=== PATIENT | female | born 1940 | race Caucasian/White ===

== ENCOUNTER 2024-05-08 20:54 | Inpatient (IN) | payer MEDICARE, MEDICAID ==
[~2024-05-08] VITALS: Ht 152.4 cm; Wt 55.3 kg
[2024-05-08 22:01] LABS: BASOPHILS % 0.4 % (0.0-2.0); EOSINOPHILS % 0.3 % (0.0-5.0); HEMATOCRIT. 38.1 % (36.0-48.0); HEMOGLOBIN. 12.3 g/dL (12.0-16.0); LYMPHOCYTES % 16.4 % (20.0-50.0); MEAN CORPUSCULAR HEMOGLOBIN 27.7 pg (28.0-32.0); MEAN CORPUSCULAR HGB CONC 32.2 g/dL (31.0-37.0); MEAN CORPUSCULAR VOLUME 85.9 fL (81.0-99.0); MEAN PLATELET VOLUME 8.4 fl (7.4-10.4); MONOCYTES % 7.4 % (2.0-8.0); NEUTROPHILS % 75.5 % (40.0-76.0); PLATELET 281 x1000/uL (130-400); RED BLOOD CELL COUNT 4.43 mill/uL (4.2-5.4); RED CELL DISTRIBUTION WIDTH 15.4 % (11.6-14.6); WHITE BLOOD COUNT 12.2 x1000/uL (4.5-11.0)
[2024-05-08 22:07] LABS: CHLORIDE 98 mEq/L (98-107); POTASSIUM 4.6 mEq/L (3.5-5.1); SODIUM 135 mEq/L (136-145)
[2024-05-08 22:08] LABS: CALCIUM 9.7 mg/dL (8.7-10.4); CARBON DIOXIDE 32 mEq/L (21-32)
[2024-05-08 22:10] LABS: CLARITY URINE TURBID (CLEAR); COLOR URINE YELLOW (YELLOW); GLUCOSE URINE NEGATIVE (NEGATIVE); KETONES URINE TRACE (NEGATIVE); LEUKOCYTE ESTERASE URINE 3+ (NEGATIVE); NITRITE URINE NEGATIVE (NEGATIVE); OCCULT BLOOD URINE 3+ (NEGATIVE); PH URINE 5.5 (4.5-8.0); PROTEIN URINE 2+ (NEGATIVE); SPECIFIC GRAVITY URINE 1.019 (1.005-1.030); UROBILINOGEN URINE 0.2 E.U./dL (0.2-1.0)
[2024-05-08] MEDS: SODIUM CHLORIDE 0.9% 1,000 ML IV ONE ×2 (22:10→23:47)
[2024-05-08 22:13] LABS: CREATININE 1.2 mg/dL (0.6-1.0); GLUCOSE 172 mg/dL (70-105); UREA NITROGEN BLOOD 31 mg/dL (9-23)
[2024-05-08 22:15] LABS: ALANINE AMINOTRANSFERASE 8 IU/L (10-49); ASPARTATE AMINOTRANSFERASE 15 IU/L (<34); BILIRUBIN DIRECT 0.1 mg/dL (<=3.0); BILIRUBIN TOTAL 0.5 mg/dL (0.1-1.0); LACTIC ACID 2.2 mmol/L (0.4-2.0); TROPONIN I HIGH SENSITIVITY 14 ng/L (3.0-34)
[2024-05-08 22:20] LABS: THYROID STIMULATING HORMONE 1.93 uIU/mL (0.55-4.78)
[2024-05-08 22:34] LABS: WBC URINE TNTC /hpf (0-2)
[2024-05-08 22:35] LABS: BACTERIA URINE 4+; RBC URINE TNTC /hpf (0-2); SQUAMOUS EPITHELIAL CELL URINE FEW /lpf (RARE/1+)
[2024-05-08] MEDS ORDERED: VANCOMYCIN 1G PREMIX 200 ML IV ONE (23:15)
[2024-05-08] MEDS: PIPERACILLIN/TAZO 3.375G/50ML 50 ML IV ONE (23:47)
[2024-05-09] VITALS (73 sets, daily range): BP systolic 88–197; BP diastolic 43–125; PULSE 64–91; RESP 13–20; TEMP 36.50292–37.28076; O2SAT 97–100
[2024-05-09] MEDS: VANCOMYCIN 1GM PMX (XELLIA) 200 ML IV NR (00:15)
[2024-05-09 00:32] LABS: BG BASE EXCESS 0.7 mmol/L (-2.0-3.0); BG CARBOXYHEMOGLOBIN 0.5 % (0.5-1.5); BG DEOXYHEMOGLOBIN 8.6 % (0.0-5.0); BG FRACTION INSPIRED OXYGEN 28; BG HCO3 ACT 27.9 mmol/L (21.0-28.0); BG METHEMOGLOBIN 0.2 % (0.5-1.5); BG OXYGEN SATURATION 91.3 % (94.0-98.0); BG OXYHEMOGLOBIN 90.7 % (94.0-98.0); BG PCO2 56.9 mmHg (32.0-45.0); BG PH 7.309 (7.350-7.450); BG PO2 65.9 mmHg (83.0-108.0); BG SAMPLE SITE RIGHT BRACHIAL; BG TOTAL HEMOGLOBIN 11.9 g/dL (12.0-16.0); BG VENT MODE NASAL CANNULA
[2024-05-09 05:15] LABS: BG BASE EXCESS 2.7 mmol/L (-2.0-3.0); BG CARBOXYHEMOGLOBIN 0.8 % (0.5-1.5); BG FRACTION INSPIRED OXYGEN 40; BG HCO3 ACT 25.3 mmol/L (21.0-28.0); BG OXYHEMOGLOBIN 98.2 % (94.0-98.0); BG PCO2 33.1 mmHg (32.0-45.0); BG PH 7.502 (7.350-7.450); BG PO2 130.3 mmHg (83.0-108.0); BG SAMPLE SITE RIGHT BRACHIAL; BG TOTAL HEMOGLOBIN 13.1 g/dL (12.0-16.0); BG VENT MODE VENT - AC
[2024-05-09] MEDS: DEXT 5%/0.45% NACL 1000ML 1,000 ML IV SCH (08:00)
[2024-05-09] MEDS: PIPERACILLIN/TAZO 3.375G/50ML 50 ML IV SCH (09:27)
[2024-05-09] MEDS: PANTOPRAZOLE SODIUM 40 MG/VIAL IV SCH (09:28)
[2024-05-09] MEDS: ENOXAPARIN 30MG/0.3ML SYR SUBCUT SCH (09:28)
[2024-05-09] MEDS: PROPOFOL 10MG/ML 100ML 100 ML IV PRN (09:31)
[2024-05-09 10:44] LABS: TROPONIN I HIGH SENSITIVITY 27 ng/L (3.0-34)
[2024-05-09 16:15] LABS: BASOPHILS % 0.7 % (0.0-2.0); EOSINOPHILS % 1.7 % (0.0-5.0); HEMATOCRIT. 32.6 % (36.0-48.0); HEMOGLOBIN. 10.8 g/dL (12.0-16.0); LYMPHOCYTES % 12.1 % (20.0-50.0); MEAN CORPUSCULAR HEMOGLOBIN 28.6 pg (28.0-32.0); MEAN CORPUSCULAR HGB CONC 33.1 g/dL (31.0-37.0); MEAN CORPUSCULAR VOLUME 86.5 fL (81.0-99.0); MEAN PLATELET VOLUME 8.7 fl (7.4-10.4); MONOCYTES % 6.2 % (2.0-8.0); NEUTROPHILS % 79.3 % (40.0-76.0); PLATELET 230 x1000/uL (130-400); RED BLOOD CELL COUNT 3.77 mill/uL (4.2-5.4); RED CELL DISTRIBUTION WIDTH 16.2 % (11.6-14.6); WHITE BLOOD COUNT 8.6 x1000/uL (4.5-11.0)
[2024-05-09 16:25] LABS: CHLORIDE 106 mEq/L (98-107); POTASSIUM 3.6 mEq/L (3.5-5.1); SODIUM 141 mEq/L (136-145)
[2024-05-09 16:26] LABS: CALCIUM 9.3 mg/dL (8.7-10.4); CARBON DIOXIDE 28 mEq/L (21-32)
[2024-05-09 16:31] LABS: CREATININE 0.8 mg/dL (0.6-1.0); GLUCOSE 210 mg/dL (70-105); UREA NITROGEN BLOOD 21 mg/dL (9-23)
[2024-05-09 16:32] LABS: TROPONIN I HIGH SENSITIVITY 21 ng/L (3.0-34)
[2024-05-09 16:33] LABS: PHOSPHORUS 2.8 mg/dL (2.5-4.9)
[2024-05-09] MEDS: VANCOMYCIN 750MG PMX (XELLIA) 150 ML IV SCH (21:20)
[2024-05-09 23:58] LABS: TROPONIN I HIGH SENSITIVITY 21 ng/L (3.0-34)
[2024-05-10] VITALS (106 sets, daily range): BP systolic 92–195; BP diastolic 38–146; PULSE 53–87; RESP 11–25; TEMP 36.6696–37.503; O2SAT 97–100
[2024-05-10] MEDS: DEXT 5%/0.2% NACL KCL 20MEQ/L 1,000 ML IV SCH (01:26)
[2024-05-10 06:22] LABS: BASOPHILS % 0.8 % (0.0-2.0); EOSINOPHILS % 3.2 % (0.0-5.0); HEMATOCRIT. 30.6 % (36.0-48.0); HEMOGLOBIN. 10.3 g/dL (12.0-16.0); LYMPHOCYTES % 19.3 % (20.0-50.0); MEAN CORPUSCULAR HEMOGLOBIN 29.4 pg (28.0-32.0); MEAN CORPUSCULAR HGB CONC 33.5 g/dL (31.0-37.0); MEAN CORPUSCULAR VOLUME 87.8 fL (81.0-99.0); MEAN PLATELET VOLUME 9.1 fl (7.4-10.4); MONOCYTES % 7.4 % (2.0-8.0); NEUTROPHILS % 69.3 % (40.0-76.0); PLATELET 219 x1000/uL (130-400); RED BLOOD CELL COUNT 3.49 mill/uL (4.2-5.4); RED CELL DISTRIBUTION WIDTH 15.9 % (11.6-14.6); WHITE BLOOD COUNT 7.4 x1000/uL (4.5-11.0)
[2024-05-10 06:36] LABS: CALCIUM 8.8 mg/dL (8.7-10.4); CARBON DIOXIDE 25 mEq/L (21-32); CHLORIDE 106 mEq/L (98-107); SODIUM 138 mEq/L (136-145)
[2024-05-10 06:41] LABS: CREATININE 0.8 mg/dL (0.6-1.0); GLUCOSE 227 mg/dL (70-105)
[2024-05-10 06:42] LABS: TRIGLYCERIDE 271 mg/dL (0-150); UREA NITROGEN BLOOD 21 mg/dL (9-23)
[2024-05-10 06:44] LABS: PHOSPHORUS 2.5 mg/dL (2.5-4.9)
[2024-05-10] MEDS: KCL 20MEQ/100ML PREMIX 100 ML IV SCH (08:39)
[2024-05-10 11:37] LABS: BG BASE EXCESS -0.2 mmol/L (-2.0-3.0); BG CARBOXYHEMOGLOBIN 0.3 % (0.5-1.5); BG DEOXYHEMOGLOBIN 0.9 % (0.0-5.0); BG FRACTION INSPIRED OXYGEN 35; BG HCO3 ACT 22.7 mmol/L (21.0-28.0); BG METHEMOGLOBIN 0.3 % (0.5-1.5); BG OXYGEN SATURATION 99.1 % (94.0-98.0); BG OXYHEMOGLOBIN 98.5 % (94.0-98.0); BG PCO2 31.1 mmHg (32.0-45.0); BG PH 7.481 (7.350-7.450); BG PO2 147.7 mmHg (83.0-108.0); BG SAMPLE SITE RIGHT RADIAL; BG TOTAL HEMOGLOBIN 10.3 g/dL (12.0-16.0); BG VENT MODE VENT - AC
[2024-05-10 17:36] LABS: BG BASE EXCESS -0.2 mmol/L (-2.0-3.0); BG CARBOXYHEMOGLOBIN 0.7 % (0.5-1.5); BG DEOXYHEMOGLOBIN 0.6 % (0.0-5.0); BG FRACTION INSPIRED OXYGEN 35; BG HCO3 ACT 23.4 mmol/L (21.0-28.0); BG METHEMOGLOBIN 0.3 % (0.5-1.5); BG OXYGEN SATURATION 99.4 % (94.0-98.0); BG OXYHEMOGLOBIN 98.4 % (94.0-98.0); BG PCO2 34.6 mmHg (32.0-45.0); BG PH 7.448 (7.350-7.450); BG PO2 164.4 mmHg (83.0-108.0); BG SAMPLE SITE RIGHT RADIAL; BG TOTAL HEMOGLOBIN 11.5 g/dL (12.0-16.0); BG VENT MODE VENT - CPAP
[2024-05-10] MEDS: HYDRALAZINE 20MG/ML VIAL IV PRN (18:14)
[2024-05-10 20:56] LABS: BG BASE EXCESS -1.3 mmol/L (-2.0-3.0); BG CARBOXYHEMOGLOBIN 0.8 % (0.5-1.5); BG DEOXYHEMOGLOBIN 0.6 % (0.0-5.0); BG FRACTION INSPIRED OXYGEN 40; BG HCO3 ACT 22.5 mmol/L (21.0-28.0); BG METHEMOGLOBIN 0.1 % (0.5-1.5); BG OXYGEN SATURATION 99.4 % (94.0-98.0); BG OXYHEMOGLOBIN 98.5 % (94.0-98.0); BG PCO2 35.4 mmHg (32.0-45.0); BG PH 7.422 (7.350-7.450); BG SAMPLE SITE RIGHT BRACHIAL; BG VENT MODE COOL AEROSOL
[2024-05-11] VITALS (18 sets, daily range): BP systolic 109–169; BP diastolic 24–112; PULSE 69–85; RESP 11–24; TEMP 36.00288–36.83628; O2SAT 94–100
[2024-05-11 08:30] LABS: BG BASE EXCESS 0.1 mmol/L (-2.0-3.0); BG CARBOXYHEMOGLOBIN 0.4 % (0.5-1.5); BG DEOXYHEMOGLOBIN 3.9 % (0.0-5.0); BG FRACTION INSPIRED OXYGEN 32; BG HCO3 ACT 23.9 mmol/L (21.0-28.0); BG METHEMOGLOBIN 0.3 % (0.5-1.5); BG OXYGEN SATURATION 96.1 % (94.0-98.0); BG OXYHEMOGLOBIN 95.4 % (94.0-98.0); BG PCO2 36.4 mmHg (32.0-45.0); BG PH 7.436 (7.350-7.450); BG PO2 74.2 mmHg (83.0-108.0); BG SAMPLE SITE RIGHT BRACHIAL; BG TOTAL HEMOGLOBIN 12.5 g/dL (12.0-16.0); BG VENT MODE NASAL CANNULA
[2024-05-11 10:33] LABS: BASOPHILS % 0.6 % (0.0-2.0); EOSINOPHILS % 4.8 % (0.0-5.0); HEMATOCRIT. 35.2 % (36.0-48.0); HEMOGLOBIN. 11.7 g/dL (12.0-16.0); LYMPHOCYTES % 15.9 % (20.0-50.0); MEAN CORPUSCULAR HEMOGLOBIN 28.7 pg (28.0-32.0); MEAN CORPUSCULAR HGB CONC 33.3 g/dL (31.0-37.0); MEAN CORPUSCULAR VOLUME 86.2 fL (81.0-99.0); MEAN PLATELET VOLUME 8.7 fl (7.4-10.4); MONOCYTES % 7.1 % (2.0-8.0); NEUTROPHILS % 71.6 % (40.0-76.0); PLATELET 273 x1000/uL (130-400); RED BLOOD CELL COUNT 4.08 mill/uL (4.2-5.4); RED CELL DISTRIBUTION WIDTH 15.6 % (11.6-14.6); WHITE BLOOD COUNT 5.8 x1000/uL (4.5-11.0)
[2024-05-11 10:37] LABS: CHLORIDE 103 mEq/L (98-107); POTASSIUM 3.6 mEq/L (3.5-5.1); SODIUM 137 mEq/L (136-145)
[2024-05-11 10:38] LABS: CALCIUM 9.7 mg/dL (8.7-10.4); CARBON DIOXIDE 26 mEq/L (21-32)
[2024-05-11 10:43] LABS: CREATININE 0.7 mg/dL (0.6-1.0); GLUCOSE 244 mg/dL (70-105); UREA NITROGEN BLOOD 8 mg/dL (9-23)
[2024-05-11] MEDS: VANCOMYCIN 1GM PMX (XELLIA) 200 ML IV SCH (13:47)
[2024-05-12] VITALS (12 sets, daily range): BP systolic 122–165; BP diastolic 44–92; PULSE 74–90; RESP 13–20; TEMP 36.16956–37.33632; O2SAT 92–99
[2024-05-12] MEDS ORDERED: SULF-13 MT (03:04)
[2024-05-12] MEDS ORDERED: CHLO473M2 MT (03:04)
[2024-05-12] MEDS ORDERED: FURO20TA4 MT (03:04)
[2024-05-12] MEDS ORDERED: ROSU40TA PO (03:04)
[2024-05-12] MEDS ORDERED: TRAM50TA3 PO (03:04)
[2024-05-12] MEDS ORDERED: GABA-1180 PO (03:04)
[2024-05-12] MEDS ORDERED: PLET5 MT (03:04)
[2024-05-12] MEDS ORDERED: METF-414 MT (03:04)
[2024-05-12] MEDS ORDERED: POLY8.5P PO (03:04)
[2024-05-12] MEDS ORDERED: ASPI-1497 MT (03:04)
[2024-05-12] MEDS: HYDROCODONE/ACETAMINOPHEN 5/325MG TABLET PO PRN (09:28)
[2024-05-12] MEDS ORDERED: LIDOCAINE HCL/EPINEPHRINE 1%-EPI 1:100,000 50ML VIAL INFIL NR (12:00)
[2024-05-12] MEDS ORDERED: LIDOCAINE HCL/EPINEPHRINE 1%-EPI 1:100,000 20ML VIAL INFIL NR (12:00)
[2024-05-13] VITALS (11 sets, daily range): BP systolic 131–152; BP diastolic 46–119; PULSE 70–83; RESP 12–23; TEMP 36.28068–37.2252; O2SAT 95–99
[2024-05-13 05:09] LABS: BASOPHILS % 0.9 % (0.0-2.0); EOSINOPHILS % 6.1 % (0.0-5.0); HEMATOCRIT. 35.1 % (36.0-48.0); HEMOGLOBIN. 11.5 g/dL (12.0-16.0); LYMPHOCYTES % 27.4 % (20.0-50.0); MEAN CORPUSCULAR HEMOGLOBIN 28.5 pg (28.0-32.0); MEAN CORPUSCULAR HGB CONC 32.9 g/dL (31.0-37.0); MEAN CORPUSCULAR VOLUME 86.7 fL (81.0-99.0); MEAN PLATELET VOLUME 8.3 fl (7.4-10.4); MONOCYTES % 9.5 % (2.0-8.0); NEUTROPHILS % 56.1 % (40.0-76.0); PLATELET 299 x1000/uL (130-400); RED BLOOD CELL COUNT 4.04 mill/uL (4.2-5.4); RED CELL DISTRIBUTION WIDTH 15.8 % (11.6-14.6); WHITE BLOOD COUNT 4.4 x1000/uL (4.5-11.0)
[2024-05-13 05:21] LABS: CHLORIDE 103 mEq/L (98-107); POTASSIUM 3.9 mEq/L (3.5-5.1); SODIUM 136 mEq/L (136-145)
[2024-05-13 05:22] LABS: CALCIUM 9.3 mg/dL (8.7-10.4); CARBON DIOXIDE 27 mEq/L (21-32)
[2024-05-13 05:27] LABS: CREATININE 0.6 mg/dL (0.6-1.0); GLUCOSE 244 mg/dL (70-105)
[2024-05-13 05:28] LABS: UREA NITROGEN BLOOD 9 mg/dL (9-23)
[2024-05-13] MEDS ORDERED: NALOXONE HCL 0.4MG/ML VIAL IV PRN (09:15)
[2024-05-13] MEDS: MAGNESIUM 2 G PREMIX 50 ML IV NR (10:55)
[2024-05-13] MEDS ORDERED: LEVO250T74 MT (16:42)
[2024-05-13] MEDS ORDERED: AMOX1TAB16 MT (16:42)
[2024-05-14] VITALS (12 sets, daily range): BP systolic 125–168; BP diastolic 50–118; PULSE 75–94; RESP 11–30; TEMP 36.3918–37.33632; O2SAT 93–99
[2024-05-15] VITALS (12 sets, daily range): BP systolic 86–177; BP diastolic 32–120; PULSE 69–84; RESP 13–19; TEMP 36.22512–37.11408; O2SAT 89–99
[2024-05-15] MEDS: POTASSIUM CHLORIDE IV SCH (11:30)
[2024-05-15] MEDS: NACL IV SCH (11:30)
[2024-05-15] MEDS: DEXT IV SCH (11:30)
[2024-05-16] VITALS (12 sets, daily range): BP systolic 96–168; BP diastolic 41–121; PULSE 72–80; RESP 12–20; TEMP 36.61404–37.05852; O2SAT 93–99
[2024-05-16 11:51] LABS: BASOPHILS % 1.2 % (0.0-2.0); EOSINOPHILS % 4.9 % (0.0-5.0); HEMATOCRIT. 33.2 % (36.0-48.0); HEMOGLOBIN. 10.8 g/dL (12.0-16.0); LYMPHOCYTES % 24.5 % (20.0-50.0); MEAN CORPUSCULAR HEMOGLOBIN 27.9 pg (28.0-32.0); MEAN CORPUSCULAR HGB CONC 32.6 g/dL (31.0-37.0); MEAN CORPUSCULAR VOLUME 85.5 fL (81.0-99.0); MEAN PLATELET VOLUME 8.4 fl (7.4-10.4); MONOCYTES % 8.5 % (2.0-8.0); NEUTROPHILS % 60.9 % (40.0-76.0); PLATELET 308 x1000/uL (130-400); RED BLOOD CELL COUNT 3.88 mill/uL (4.2-5.4); RED CELL DISTRIBUTION WIDTH 15.6 % (11.6-14.6); WHITE BLOOD COUNT 4.6 x1000/uL (4.5-11.0)
[2024-05-16 12:04] LABS: CARBON DIOXIDE 26 mEq/L (21-32); CHLORIDE 100 mEq/L (98-107); POTASSIUM 4.1 mEq/L (3.5-5.1); SODIUM 132 mEq/L (136-145)
[2024-05-16 12:05] LABS: CALCIUM 9.4 mg/dL (8.7-10.4)
[2024-05-16 12:10] LABS: CREATININE 0.7 mg/dL (0.6-1.0); GLUCOSE 313 mg/dL (70-105); UREA NITROGEN BLOOD 8 mg/dL (9-23)
[2024-05-16] MEDS ORDERED: DEXTROSE 50% WATER 50ML SYRINGE IV PRN (17:30)
[2024-05-16] MEDS: BLOOD SUGAR DIAGNOSTIC STRIP TEST SCH (17:30)
[2024-05-16] MEDS: INSULIN LISPRO 100 UNITS/ML SUBCUT SCH (19:08)
[2024-05-16] MEDS: MAGNESIUM 2 G PREMIX 50 ML IV NR (19:10)
[2024-05-17] VITALS (12 sets, daily range): BP systolic 87–176; BP diastolic 38–106; PULSE 69–87; RESP 9–33; TEMP 36.28068–36.9474; O2SAT 95–99
[2024-05-17 17:51] LABS: BASOPHILS % 1.1 % (0.0-2.0); EOSINOPHILS % 2.8 % (0.0-5.0); HEMATOCRIT. 32.8 % (36.0-48.0); HEMOGLOBIN. 11.1 g/dL (12.0-16.0); LYMPHOCYTES % 20.5 % (20.0-50.0); MEAN CORPUSCULAR HGB CONC 33.8 g/dL (31.0-37.0); MEAN CORPUSCULAR VOLUME 85.7 fL (81.0-99.0); MEAN PLATELET VOLUME 8.3 fl (7.4-10.4); MONOCYTES % 8.2 % (2.0-8.0); NEUTROPHILS % 67.4 % (40.0-76.0); PLATELET 332 x1000/uL (130-400); RED BLOOD CELL COUNT 3.83 mill/uL (4.2-5.4); RED CELL DISTRIBUTION WIDTH 15.5 % (11.6-14.6); WHITE BLOOD COUNT 6.3 x1000/uL (4.5-11.0)
[2024-05-17 17:57] LABS: CHLORIDE 101 mEq/L (98-107); POTASSIUM 4.5 mEq/L (3.5-5.1); SODIUM 133 mEq/L (136-145)
[2024-05-17 17:59] LABS: CALCIUM 9.4 mg/dL (8.7-10.4); CARBON DIOXIDE 27 mEq/L (21-32)
[2024-05-17 18:04] LABS: CREATININE 0.7 mg/dL (0.6-1.0); GLUCOSE 209 mg/dL (70-105)
[2024-05-17 18:05] LABS: UREA NITROGEN BLOOD 16 mg/dL (9-23)
[2024-05-17 18:06] LABS: ALANINE AMINOTRANSFERASE 14 IU/L (10-49); ALBUMIN 3.6 g/dL (3.2-4.8); ASPARTATE AMINOTRANSFERASE 14 IU/L (<34)
[2024-05-17 18:07] LABS: BILIRUBIN TOTAL 0.3 mg/dL (0.1-1.0); PROTEIN TOTAL 6.7 g/dL (6.0-8.3)
[2024-05-17] MEDS: INSULIN LISPRO 100 UNITS/ML SUBCUT SCH (18:18)
[2024-05-18] VITALS (10 sets, daily range): BP systolic 83–146; BP diastolic 34–93; PULSE 69–84; RESP 12–22; TEMP 36.61404–37.55856; O2SAT 93–100
[2024-05-18] MEDS: SODIUM CHLORIDE 0.9% 500 ML IV ONE (21:30)
[2024-05-19] VITALS: BP 144/91; PULSE 76; RESP 22; TEMP 36.44736; O2SAT 97
[2024-05-19 04:00] VITALS: BP 164/136; PULSE 77; RESP 16; TEMP 37.2252; O2SAT 96
[2024-05-19 08:00] VITALS: BP 143/74; PULSE 79; RESP 13; TEMP 36.6696; O2SAT 99
[2024-05-19] MEDS ORDERED: LIDOCAINE HCL/EPINEPHRINE 1%-EPI 1:100,000 30ML VIAL INFIL NR (11:00)
[2024-05-19 12:00] VITALS: BP 141/49; PULSE 71; RESP 14; TEMP 36.61404; O2SAT 98
[2024-05-19 16:00] VITALS: BP 143/41; PULSE 75; RESP 16; TEMP 37.00296; O2SAT 97
[2024-05-19 20:00] VITALS: BP 112/49; PULSE 73; RESP 21; TEMP 37.72524; O2SAT 100
[2024-05-20] VITALS (7 sets, daily range): BP systolic 103–167; BP diastolic 41–97; PULSE 71–79; RESP 13–17; TEMP 36.33624–36.9474; O2SAT 96–99
[2024-05-21] VITALS (9 sets, daily range): BP systolic 86–151; BP diastolic 39–83; PULSE 64–82; RESP 8–20; TEMP 36.33624–37.11408; O2SAT 95–99
[2024-05-21] MEDS: ACETAMINOPHEN 325MG TABLET PO PRN (10:16)
[2024-05-22] VITALS: BP 137/55; PULSE 76; RESP 10; TEMP 36.3918; O2SAT 80
[2024-05-22 04:00] VITALS: BP_SYST 155; BP_SYST 164; BP_DIAS 62; BP_DIAS 65; PULSE 77; PULSE 78; RESP 17; RESP 18; TEMP 36.28068; TEMP 36.33624; O2SAT 97
[2024-05-22 08:00] VITALS: BP 144/56; PULSE 75; RESP 20; TEMP 36.78072; O2SAT 98
[2024-05-22 12:00] VITALS: BP 124/48; PULSE 72; RESP 19; TEMP 36.61404; O2SAT 96
[2024-05-22 15:49] VITALS: BP 101/66; PULSE 74; RESP 18; TEMP 36.61404; O2SAT 99
[2024-05-22] MEDS: LACTULOSE 20G/30ML UDC PO NR (18:14)
[2024-05-22 20:00] VITALS: BP 104/36; PULSE 65; RESP 18; TEMP 37.00296; O2SAT 98
[2024-05-22] MEDS: INSULIN GLARGINE 100 UNITS/ML SUBCUT SCH (22:44)
[2024-05-23] VITALS: BP 111/40; PULSE 74; RESP 18; TEMP 36.55848; O2SAT 97
[2024-05-23 04:00] VITALS: BP 118/44; PULSE 70; RESP 18; TEMP 36.44736; O2SAT 97
[2024-05-23 08:00] VITALS: BP 140/40; PULSE 69; RESP 18; TEMP 36.72516; O2SAT 99
[2024-05-23 12:00] VITALS: BP 130/44; PULSE 74; RESP 18; TEMP 36.89184; O2SAT 98
[2024-05-23 16:00] VITALS: BP 149/51; PULSE 77; RESP 19; TEMP 36.78072; O2SAT 100
[2024-05-23 20:00] VITALS: BP 142/55; PULSE 78; RESP 19; TEMP 36.50292; O2SAT 98
[2024-05-24] VITALS: BP 147/42; PULSE 67; RESP 19; TEMP 36.28068; O2SAT 100
[2024-05-24 04:00] VITALS: BP 162/62; PULSE 71; RESP 19; TEMP 36.22512; O2SAT 100
[2024-05-24 08:00] VITALS: BP_SYST 133; BP_SYST 149; BP_DIAS 48; BP_DIAS 54; PULSE 69; RESP 17; TEMP 36.61404; TEMP 36.78072; O2SAT 97; O2SAT 98
[2024-05-24 12:00] VITALS: BP 133/48; PULSE 69; RESP 17; TEMP 36.83628; O2SAT 97
[2024-05-24 16:00] VITALS: BP 161/66; PULSE 81; RESP 18; TEMP 36.6696; O2SAT 98
[2024-05-24 20:00] VITALS: BP 129/44; PULSE 70; RESP 19; TEMP 36.61404; O2SAT 95
[2024-05-25] VITALS: BP 133/45; PULSE 71; RESP 19; TEMP 36.50292; O2SAT 96
[2024-05-25 04:00] VITALS: BP 143/42; PULSE 64; RESP 19; TEMP 36.61404; O2SAT 95
[2024-05-25 08:00] VITALS: BP 107/58; PULSE 66; RESP 19; TEMP 36.78072; O2SAT 98
[2024-05-25] MEDS: FAMOTIDINE 20MG/2ML VIAL IV SCH (09:33)
[2024-05-25 12:00] VITALS: BP 104/36; PULSE 75; RESP 18; TEMP 36.44736; O2SAT 98
[2024-05-25 14:25] LABS: CLARITY URINE CLOUDY (CLEAR); COLOR URINE YELLOW (YELLOW); GLUCOSE URINE 3+ (NEGATIVE); KETONES URINE NEGATIVE (NEGATIVE); LEUKOCYTE ESTERASE URINE 2+ (NEGATIVE); NITRITE URINE NEGATIVE (NEGATIVE); OCCULT BLOOD URINE NEGATIVE (NEGATIVE); PH URINE 5.5 (4.5-8.0); PROTEIN URINE 1+ (NEGATIVE); SPECIFIC GRAVITY URINE 1.023 (1.005-1.030); UROBILINOGEN URINE 0.2 E.U./dL (0.2-1.0)
[2024-05-25 14:37] LABS: BACTERIA URINE TRACE; RBC URINE 0-2 /hpf (0-2); SQUAMOUS EPITHELIAL CELL URINE 2+ /lpf (RARE/1+); WBC URINE 50-100 /hpf (0-2); YEAST URINE 2+
[2024-05-25 16:00] VITALS: BP 102/55; PULSE 72; RESP 20; TEMP 36.50292; O2SAT 99
[2024-05-25] MEDS: FLUCONAZOLE 100MG TABLET PO NR (18:02)
[2024-05-25 20:00] VITALS: BP 100/68; PULSE 67; RESP 18; TEMP 36.16956; O2SAT 99
[2024-05-25] MEDS: CEFTRIAXONE 1GM/50ML 50 ML IV SCH (22:40)
[2024-05-26] VITALS: BP 116/74; PULSE 74; RESP 18; TEMP 36.28068; O2SAT 100
[2024-05-26 04:00] VITALS: BP 146/55; PULSE 70; RESP 18; TEMP 36.3918; O2SAT 99
[2024-05-26 08:00] VITALS: BP 105/39; PULSE 63; RESP 17; TEMP 36.61404; O2SAT 99
[2024-05-26 12:00] VITALS: BP 122/51; PULSE 71; RESP 18; TEMP 36.22512; O2SAT 100
[2024-05-26 16:00] VITALS: BP 161/59; PULSE 77; RESP 18; TEMP 37.16964; O2SAT 99
[2024-05-26 20:00] VITALS: BP 153/51; PULSE 76; RESP 18; TEMP 36.33624; O2SAT 98
[2024-05-27] VITALS: BP 156/42; PULSE 69; RESP 18; TEMP 36.33624; O2SAT 97
[2024-05-27 04:00] VITALS: BP 168/62; PULSE 75; RESP 18; TEMP 36.22512; O2SAT 95
[2024-05-27 08:00] VITALS: BP 168/65; PULSE 70; RESP 18; TEMP 36.89184; O2SAT 98
[2024-05-27 12:00] VITALS: BP 155/65; PULSE 86; RESP 18; TEMP 37.00296; O2SAT 98
[2024-05-27 16:00] VITALS: BP 137/64; PULSE 80; RESP 18; TEMP 36.6696; O2SAT 97
[2024-05-27 20:00] VITALS: BP 117/88; PULSE 76; RESP 18; TEMP 36.16956; O2SAT 95
[2024-05-28] VITALS: BP 149/46; PULSE 69; RESP 18; TEMP 36.44736; O2SAT 95
[2024-05-28 04:00] VITALS: BP 147/58; PULSE 70; RESP 18; TEMP 36.114; O2SAT 95
[2024-05-28 08:00] VITALS: BP 148/59; PULSE 68; RESP 19; TEMP 36.44736; O2SAT 99
[2024-05-28 11:54] LABS: HEMATOCRIT 37.7 % (36.0-48.0); HEMOGLOBIN 12.1 g/dL (12.0-16.0); MEAN CORPUSCULAR HEMOGLOBIN 28.1 pg (28.0-32.0); MEAN CORPUSCULAR HGB CONC 32.1 g/dL (31.0-37.0); MEAN CORPUSCULAR VOLUME 87.5 fL (81.0-99.0); PLATELET 315 x1000/uL (130-400); RED BLOOD CELL COUNT 4.31 mill/uL (4.2-5.4); RED CELL DISTRIBUTION WIDTH 15.3 % (11.6-14.6); WHITE BLOOD COUNT 5.3 x1000/uL (4.5-11.0)
[2024-05-28 12:00] VITALS: BP 155/55; PULSE 66; RESP 20; TEMP 35.78064; O2SAT 97
[2024-05-28 12:02] LABS: CARBON DIOXIDE 26 mEq/L (21-32); CHLORIDE 101 mEq/L (98-107); POTASSIUM 3.9 mEq/L (3.5-5.1); SODIUM 136 mEq/L (136-145)
[2024-05-28 12:08] LABS: CREATININE 0.6 mg/dL (0.6-1.0); GLUCOSE 166 mg/dL (70-105); UREA NITROGEN BLOOD 17 mg/dL (9-23)
[2024-05-28 16:00] VITALS: PULSE 67; RESP 19; TEMP 35.94732; O2SAT 98
[2024-05-28 20:00] VITALS: BP 134/59; PULSE 70; RESP 19; TEMP 36.50292; O2SAT 98
[2024-05-29 04:00] VITALS: BP 159/58; PULSE 74; RESP 19; TEMP 36.3918; O2SAT 98
[2024-05-29 08:00] VITALS: BP 144/56; PULSE 60; RESP 20; TEMP 36.61404; O2SAT 96
[2024-05-29 11:49] VITALS: BP 128/47; PULSE 71; RESP 19; TEMP 36.61404; O2SAT 96
[2024-05-29 15:40] VITALS: BP 109/42; PULSE 68; RESP 19; TEMP 36.61404
[2024-05-29 20:00] VITALS: BP 169/65; PULSE 65; RESP 19; TEMP 36.78072; O2SAT 95
[2024-05-29] MEDS: HYDRALAZINE 10 MG in SODIUM CHLORIDE 0.9% 49.5 ML IV PRN (20:05)
[2024-05-30] VITALS: BP 152/55; PULSE 83; RESP 19; TEMP 36.55848; O2SAT 97
[2024-05-30 04:00] VITALS: BP 127/48; PULSE 76; RESP 18; TEMP 36.55848; O2SAT 95
[2024-05-30 08:00] VITALS: BP 144/66; PULSE 81; RESP 18; TEMP 36.61404; O2SAT 97
[2024-05-30 12:00] VITALS: BP 130/57; PULSE 75; RESP 18; TEMP 36.50292; O2SAT 98
[2024-05-30 15:22] VITALS: BP 148/89; PULSE 72; TEMP 97.8; O2SAT 98
== END 2024-05-30 18:00 | disposition home health service (06) | DRG 853 ==
LOC: ER 20:54 → CVICU 05-09 04:28 → 5EST 05-11 02:33 → 6EST 05-22 05:41 → 6WST 05-29 18:30
PROVIDERS: ADMIT Internal Medicine; ATTEND Internal Medicine
PROC: 0BH17EZ Insertion of Endotracheal Airway into Trachea, Via Natural or Artificial Opening (ICD-10-PCS; 2024-05-09)
PROC: 5A1945Z Respiratory Ventilation, 24-96 Consecutive Hours (ICD-10-PCS; 2024-05-09)
PROC: 0KBN0ZZ Excision of Right Hip Muscle, Open Approach (ICD-10-PCS; principal; 2024-05-12)
PROC: 0KBP0ZZ Excision of Left Hip Muscle, Open Approach (ICD-10-PCS; 2024-05-12)
PROC: 0KBN0ZZ Excision of Right Hip Muscle, Open Approach (ICD-10-PCS; 2024-05-19)
PROC: 0KBP0ZZ Excision of Left Hip Muscle, Open Approach (ICD-10-PCS; 2024-05-19)
PROC: 0KBN0ZZ Excision of Right Hip Muscle, Open Approach (ICD-10-PCS; 2024-05-28)
PROC: 0KBP0ZZ Excision of Left Hip Muscle, Open Approach (ICD-10-PCS; 2024-05-28)
DX: A41.9 Sepsis, unspecified organism (principal); J69.0 Pneumonitis due to inhalation of food and vomit; L89.154 Pressure ulcer of sacral region, stage 4; J96.01 Acute respiratory failure with hypoxia; E87.20 Acidosis, unspecified; G93.40 Encephalopathy, unspecified; N39.0 Urinary tract infection, site not specified; E11.9 Type 2 diabetes mellitus without complications; M81.0 Age-related osteoporosis without current pathological fracture; E83.42 Hypomagnesemia; Z66 Do not resuscitate; I51.7 Cardiomegaly; I69.392 Facial weakness following cerebral infarction
CPT/HCPCS: 31500; 36415; 36600; 71045; 80048; 80053; 80076; 80202; 81003; 82375; 82805; 82962; 83036; 83605; 83735; 83880; 84100; 84145; 84443; 84478; 84484; 85025; 85027; 87070; 87077; 87106; 87186; 87426; 92610; 93005; 93306; 94002; 94003; 97110; 97163; 97164; 97166; 97530; 97535; 99291; A6261; J0360; J0696; J1650; J1815; J2470; J2543; J2704; J3370; J3475; J3480; J3490; J7030